=== PATIENT | male | born 1970 | race Caucasian/White ===

== ENCOUNTER → 2024-09-03 | Outpatient (CLI) | payer BC, OTHER, SELFPAY ==
--- NOTE | 2024-09-03 13:25 | STEWCON_ITS ---
Reason For Study Stress Results Protocol: [facility] Protocol WITH DEFINITY Maximum Predicted HR: 165 bpm Target HR: 140 bpm % Maximum Predicted HR: 88 % DurationHeart Rate Stage (mm:ss) (bpm) BP Comment BASELINE 76 122/98 STAGE 1 3:00 120 166/90 STAGE 2 2:46 146 182/90 RECOVERY 99 148/984 CC DEFINITY TOTAL Stress Duration: 5:46 mm:ss Maximum Stress HR: 146 bpm Baseline Echocardiogram Findings Stress Echo Wall motion Data Resting WM Intermediate WM Stress WM ECHO/Stress Test Echo W/Contrast Interpretation Summary Stress echocardiogram. 54-year-old male with a history of chest discomfort. Resting EKG demonstrates sinus rhythm with a rate of 78 bpm normal intervals ar e noted resting blood pressure is 122/98 mmHg. The patient exercised according to regular Angel protocol for total durat ion of 5 minutes and 46 seconds the maximum heart rate attained was 146 bpm which was 88% max impacted heart rate t he maximum workload was 7.2 metabolic equivalents. At rest there were no ST or T wave changes noted suggest ischemia and at peak exercise upsloping ST changes were noted we did not meet the criteria for ischemia. The peak blood pressure w as 182/90 mmHg which was a normal blood pressure response to exercise the rate-pressure product was 26,500. Stress echocardiogram. The resting echocardiogram was performed with Definity e nhancement and there was normal left ventricular function noted estimated at 55% with no wall motion abnormalities p resent. With stress there was thickening of all fay with no evidence of wall motion abnormalities noted to suggest isc hemia Conclusion: Exercise stress echocardiogram with Definity enhancement with no evidence of is chemia present. Ordering Physician: Hannah Contreras Referring Physician: Hannah Contreras Performed By: Asia Lee RDCS
== END | disposition home or self-care (01) ==
PROVIDERS: PCP Nurse Practitioner Family; Referring Provider Nurse Practitioner Family; Visit Provider Nurse Practitioner Family
DX: R06.02 Shortness of breath (principal)
CPT/HCPCS: 93017; 93350; Q9957; A4216; C8928